=== PATIENT | female | born 2000 | race African-American/Black ===

== ENCOUNTER 2020-03-30 00:57 | Emergency (ER) | payer MEDICAID, OTHER ==
[~2020-03-30] VITALS: Ht 160 cm; Wt 60.0 kg
[2020-03-30 01:35] VITALS: BP 121/56
[2020-03-30] MEDS ORDERED: NS 1,000 ML IV ONE (02:00)
== END 2020-03-30 02:31 | disposition home or self-care (01) ==
LOC: M ED 00:57 → EDBD 00:57 → M ED 02:31
DX: F10.229 Alcohol dependence with intoxication, unspecified (principal); Z91.018 Allergy to other foods; J30.81 Allergic rhinitis due to animal (cat) (dog) hair and dander

== ENCOUNTER → 2020-05-21 | Outpatient (REF) | payer OTHER | LOC: M LAB 22:08 | PROVIDERS: ATTEND Physician Assistant | DX: Z20.828 Contact with and (suspected) exposure to other viral communicable diseases (principal) ==

== ENCOUNTER 2021-01-07 06:16 | Emergency (ER) | payer OTHER ==
[~2021-01-07] VITALS: Ht 160 cm; Wt 60.0 kg
[2021-01-07] MEDS ORDERED: RABIES VACCINE HUMAN 2.5 INTERNATIONAL UNITS/ML VIAL (90675) IM ONE (07:30)
[2021-01-07] MEDS ORDERED: TETANUS/DIPHTHERIA TOX ADSORB ADULT 0.5ML SYR/VIAL (90714) IM ONE (07:30)
[2021-01-07] MEDS ORDERED: RABIES IMMUNE GLOBULIN 1500 INTERNATIONAL UNIT/5ML VIAL (90375) IM ONE (07:30)
[2021-01-07] MEDS ORDERED: RABIES IMMUNE GLOBULIN 300 INTERNATIONAL UNITS/1ML VIAL (90375) IM ONE (08:00)
[2021-01-07] MEDS ORDERED: BOOSTRIX/ADACEL VACCINE (DIPHTH/PERTUSS/ACELL/TETANUS) 0.5ML SYR IM ONE (08:15)
[2021-01-07 09:12] VITALS: BP 110/78
== END 2021-01-07 09:10 | disposition home or self-care (01) ==
LOC: M ED 06:16
DX: S81.832A Puncture wound without foreign body, left lower leg, initial encounter (principal); W55.81XA Bitten by other mammals, initial encounter; Y92.018 Other place in single-family (private) house as the place of occurrence of the external cause

== ENCOUNTER 2021-01-10 17:36 | Emergency (ER) | payer OTHER ==
[~2021-01-10] VITALS: Ht 160 cm; Wt 58.0 kg
[2021-01-10] MEDS ORDERED: RABIES VACCINE HUMAN 2.5 INTERNATIONAL UNITS/ML VIAL (90675) IM ONE (18:05)
[2021-01-10] MEDS ORDERED: AUGM875T28 PO (18:52)
[2021-01-10 19:12] VITALS: BP 110/68
== END 2021-01-10 19:18 | disposition home or self-care (01) ==
LOC: M ED 17:36
DX: Z20.3 Contact with and (suspected) exposure to rabies (principal); Z91.048 Other nonmedicinal substance allergy status; Z91.018 Allergy to other foods

== ENCOUNTER 2021-01-14 20:24 | Emergency (ER) | payer OTHER ==
[~2021-01-14] VITALS: Ht 160 cm; Wt 60.1 kg
[~2021-01-14 20:24] MED LIST: AUGM875T28 PO
[2021-01-14 20:25] VITALS: BP 104/60
== END 2021-01-14 23:49 | disposition left against medical advice (07) ==
LOC: M ED 20:24
DX: Z53.29 Procedure and treatment not carried out because of patient's decision for other reasons (principal)

== ENCOUNTER 2021-01-17 11:24 | Emergency (ER) | payer OTHER ==
[~2021-01-17] VITALS: Ht 157.5 cm; Wt 58.3 kg
[2021-01-17 11:26] VITALS: BP 110/80
[2021-01-17] MEDS ORDERED: RABIES VACCINE HUMAN 2.5 INTERNATIONAL UNITS/ML VIAL (90675) IM ONE (11:55)
== END 2021-01-17 12:30 | disposition home or self-care (01) ==
LOC: M ED 11:24
DX: Z23 Encounter for immunization (principal); Z20.3 Contact with and (suspected) exposure to rabies; J30.2 Other seasonal allergic rhinitis; J30.81 Allergic rhinitis due to animal (cat) (dog) hair and dander; Z91.018 Allergy to other foods

== ENCOUNTER 2021-01-24 07:50 | Emergency (ER) | payer OTHER ==
[~2021-01-24] VITALS: Ht 160 cm; Wt 58.4 kg
[2021-01-24 07:51] VITALS: BP 102/69
[2021-01-24] MEDS ORDERED: RABIES VACCINE HUMAN 2.5 INTERNATIONAL UNITS/ML VIAL (90675) IM ONE (08:30)
== END 2021-01-24 09:24 | disposition home or self-care (01) ==
LOC: M ED 07:50
DX: Z20.3 Contact with and (suspected) exposure to rabies (principal); Z23 Encounter for immunization

== ENCOUNTER 2021-12-24 19:44 | Inpatient (IN) | payer OTHER ==
[~2021-12-24] VITALS: Ht 160 cm; Wt 79.4 kg
[2021-12-24] VITALS (9 sets, daily range): BP systolic 123–169; BP diastolic 73–109
[2021-12-24] MEDS ORDERED: PRENTAB9 PO (20:06)
[2021-12-24] MEDS ORDERED: HOME MED LIST COMPLETE! XX SCH (20:10)
[2021-12-24 21:12] LABS: HEMATOCRIT 34.9 % (36.0-47.0); HEMOGLOBIN 11.8 g/dl (12.0-15.5); MEAN CORPUSCULAR HGB CONC 33.8 g/dl (32.0-36.5); MEAN CORPUSCULAR VOLUME 91.6 fl (80.0-96.0); PLATELET COUNT, AUTOMATED 221 10^3/uL (150-450); RED BLOOD COUNT 3.81 10^6/uL (4.00-5.40)
[2021-12-24] MEDS ORDERED: PENICILLIN G POTASSIUM IV 5 MU in D5W MINI-BAG PLUS 100 ML IV STA (22:19)
[2021-12-24] MEDS ORDERED: METHYLERGONOVINE MALEATE 0.2 MG/ML VIAL (J2210) IM PRN (22:20)
[2021-12-24] MEDS ORDERED: OXYTOCIN DRIP 30 UNITS in IV 1 EA IV PRN ×6 (22:20)
[2021-12-24] MEDS ORDERED: OXYTOCIN INJ 10 UNITS/ML VIAL (J2590) IM PRN (22:20)
[2021-12-24] MEDS ORDERED: OXYTOCIN DRIP 30 UNITS in IV 1 EA IV SCH (22:20)
[2021-12-24] MEDS ORDERED: LIDOCAINE 1% MDV 20ML VIAL INFIL PRN (22:20)
[2021-12-24] MEDS ORDERED: CARBOPROST TROMETHAMINE 250 MCG/ML AMP IM PRN (22:20)
[2021-12-24] MEDS ORDERED: miSOPROStol 50MCG 1/2 TABLET PO ONE (22:20)
[2021-12-24] MEDS ORDERED: TRANEXAMIC ACID INJection 1,000 MG in NS 100 ML IV PRN (22:20)
[2021-12-24] MEDS ORDERED: OXYTOCIN INJ 10 UNITS/ML VIAL (J2590) IV PRN (22:20)
[2021-12-24] MEDS: LR 1,000 ML IV SCH (22:40)
[2021-12-25] VITALS (9 sets, daily range): BP systolic 117–138; BP diastolic 58–82
[2021-12-25] MEDS ORDERED: BUTORPHANOL 2 MG/ML INJ (J0595) IV ONE (00:55)
[2021-12-25] MEDS ORDERED: PROMETHAZINE 25MG/ML 1ML VIAL IV ONE (00:55)
[2021-12-25] MEDS: LR 1,000 ML IV SCH (01:46)
[2021-12-25] MEDS ORDERED: PENICILLIN G POTASSIUM IV 2.5 MU in IV 1 EA IV SCH (02:40)
[2021-12-25] MEDS ORDERED: ACETAMINOPHEN 500 MG TAB PO PRN (03:00)
[2021-12-25] MEDS ORDERED: RHOGAM 300 MCG (1500 IU) INJ (J2790) IM SCH (03:00)
[2021-12-25] MEDS ORDERED: MOM 30ML SUSPENSION UDC PO PRN (03:00)
[2021-12-25] MEDS ORDERED: DIBUCAINE 1% OINTMENT 30GM TOP PRN (03:00)
[2021-12-25] MEDS ORDERED: IBUPROFEN 800 MG TAB PO PRN (03:00)
[2021-12-25] MEDS ORDERED: DOCUSATE SODIUM 100MG CAPSULE PO PRN (03:00)
[2021-12-25] MEDS ORDERED: ANUSOL HC CREAM 30GM TOP PRN (03:00)
[2021-12-25] MEDS: PRENATAL VITAMINS CHEWABLE TABLET PO SCH (08:33)
[2021-12-26 06:05] VITALS: BP 119/77
[2021-12-26] MEDS: PRENATAL VITAMINS CHEWABLE TABLET PO SCH (08:18)
[2021-12-26 17:46] VITALS: BP 120/90
[2021-12-27 05:26] VITALS: BP 120/76
[2021-12-27] MEDS ORDERED: IBUP80TA PO (07:12)
[2021-12-27] MEDS ORDERED: COLA100C5 PO (07:12)
[2021-12-27] MEDS ORDERED: PRENCHW PO (07:12)
[2021-12-27] MEDS ORDERED: MEASLES,MUMPS,RUBELLA VACCINE INJ (MMR-II) (90707) SC.IMMUN ONE (09:00)
== END 2021-12-27 12:40 | disposition home or self-care (01) | DRG 807 ==
LOC: M LDO 19:44 → M LDI 21:03 → M OBS 12-25 04:35
PROVIDERS: ADMIT Obstetrics & Gynecology; ATTEND Obstetrics & Gynecology
PROC: 10E0XZZ Delivery of Products of Conception, External Approach (ICD-10-PCS; principal; 2021-12-25)
PROC: 0HQ9XZZ Repair Perineum Skin, External Approach (ICD-10-PCS; 2021-12-25)
DX: O77.0 Labor and delivery complicated by meconium in amniotic fluid (principal); Z37.0 Single live birth; Z3A.40 40 weeks gestation of pregnancy; J30.81 Allergic rhinitis due to animal (cat) (dog) hair and dander; Z91.018 Allergy to other foods; J30.2 Other seasonal allergic rhinitis; O99.52 Diseases of the respiratory system complicating childbirth; O99.824 Streptococcus B carrier state complicating childbirth; O69.81X0 Labor and delivery complicated by cord around neck, without compression, not applicable or unspecified; O70.0 First degree perineal laceration during delivery

== ENCOUNTER → 2025-02-14 | Outpatient (REF) | payer OTHER ==
[~2025-02-14] MED LIST changes: +COLA100C5 PO; +IBUP80TA PO; +PRENCHW PO; +PRENTAB9 PO
[2025-02-19 14:53] LABS: HPV APTIMA Not Detected (Not Detected)
== END ==
LOC: M SFHCWAGY 08:25
PROVIDERS: ATTEND Student in an Organized Health Care Education/Training Program
DX: Z01.419 Encounter for gynecological examination (general) (routine) without abnormal findings (principal)

== ENCOUNTER → 2025-05-08 | Outpatient (REF) | payer OTHER | LOC: M LAB REF 17:11 | PROVIDERS: ATTEND Student in an Organized Health Care Education/Training Program | DX: R09.81 Nasal congestion (principal) ==